=== PATIENT | female | born 1990 | race Caucasian/White ===

== ENCOUNTER 2020-01-25 21:44 | Emergency (ER) | payer MEDICAID ==
[~2020-01-25] VITALS: Ht 162.6 cm; Wt 81.6 kg
[2020-01-25 22:11] VITALS: BP_SYST 123
--- NOTE | 2020-01-25 22:28 | NUR ---
Pt ambulatory to bed 1 for evaluation
--- NOTE | 2020-01-25 22:31 | NUR ---
Patient came to ER with family. C/O laceration left foot x today. Per patient stepping on metal katerin sticking today. A/O,X4, left foot laceration, no pain, bleeding control, vss.
--- NOTE | 2020-01-25 23:01 | NUR ---
ER at bedside examining patient.
--- NOTE | 2020-01-25 23:09 | NUR ---
Patient has a 3 cm laceration to left foot. Dr. Leong applied sutures using sterile technique. Edges well approximated. Site cleansed with NSS. No bleeding noted. Pt tolerated well.
[2020-01-25] MEDS ORDERED: LIDOCAINE 1%, 20 ML MDV 20 ML ONE (23:20)
[2020-01-25] MEDS ORDERED: DIPH-TET-PERTUS Vaccine 0.5 ML VIAL (ADACEL) I.M. ONE ×3 (23:30→23:46)
[2020-01-25] MEDS ORDERED: BACITRACIN 1 GM OINT TP ONE (23:53)
[2020-01-26 00:01] VITALS: BP_SYST 123
--- NOTE | 2020-01-26 00:01 | NUR ---
Patient given written and verbal discharge instructions and verbalizes understanding. ER MD discussed with patient the results and treatment provided. Patient in stable condition. ID arm band removed. Rx of Augmentin given. Patient educated on pain management and to follow up with PMD. Pain Scale 3/10. Opportunity for questions provided and answered. Medication side effect fact sheet provided.
== END 2020-01-26 00:01 | disposition home or self-care (01) ==
LOC: SED 21:44
DX: S91.119A Laceration without foreign body of unspecified toe without damage to nail, initial encounter (principal); W22.8XXA Striking against or struck by other objects, initial encounter; Y93.89 Activity, other specified; Y92.89 Other specified places as the place of occurrence of the external cause; Y99.8 Other external cause status
CPT/HCPCS: 12001; 90471; 90715; 99283; J2001